=== PATIENT | female | born 1960 | race Caucasian/White ===

== ENCOUNTER 2020-12-06 11:15 | Inpatient (IN) | payer OTHER ==
[~2020-12-06] VITALS: Ht 170.2 cm; Wt 108.9 kg
[~2020-12-06 11:15] MED LIST: CIPRO750 MG PO; CLONAZEPAM1 MG PO; COLACE100 MG PO; METHYLPRED4 MG/DOSE- PO; NEURONTIN800 MG PO; PERCOCET 5/3251 TAB PO
[2020-12-06] MEDS ORDERED: ZESTRIL40 M1 PO (12:55)
[2020-12-06] MEDS ORDERED: CLONAZEPAM2 M1 PO (12:55)
[2020-12-06] MEDS ORDERED: PRISTIQ ER100 MG PO (12:55)
[2020-12-06] MEDS ORDERED: PAMELOR50 M1 PO (12:56)
[2020-12-06] MEDS ORDERED: PROZAC10 MG PO (12:56)
[2020-12-13] MEDS ORDERED: PERCOCET 5-3251 EACH PO (17:59)
[2020-12-13] MEDS ORDERED: COLACE100 MG PO (17:59)
[2020-12-13] MEDS ORDERED: NEURONTIN800 MG PO (17:59)
[2020-12-13] MEDS ORDERED: AMOX-CLAV 875-1 EACH PO (17:59)
[2020-12-13] MEDS ORDERED: MEDROLPACK PO (17:59)
== END 2020-12-15 11:50 | disposition home or self-care (01) | DRG 455 ==
LOC: O/R 12-13 06:39 → PED 12-13 06:39 → SURH 12-13 11:15 → PED 12-13 22:56
PROVIDERS: ADMIT Orthopaedic Surgery Orthopaedic Surgery of the Spine; ATTEND Orthopaedic Surgery Orthopaedic Surgery of the Spine
PROC: 0SG00J1 Fusion of Lumbar Vertebral Joint with Synthetic Substitute, Posterior Approach, Posterior Column, Open Approach (ICD-10-PCS; 2020-12-13)
PROC: 07DR0ZZ Extraction of Iliac Bone Marrow, Open Approach (ICD-10-PCS; 2020-12-13)
PROC: 07DR0ZZ Extraction of Iliac Bone Marrow, Open Approach (ICD-10-PCS; 2020-12-13)
PROC: 0SG00A0 Fusion of Lumbar Vertebral Joint with Interbody Fusion Device, Anterior Approach, Anterior Column, Open Approach (ICD-10-PCS; principal; 2020-12-13 19:45)
DX: M41.56 Other secondary scoliosis, lumbar region (principal); M48.062 Spinal stenosis, lumbar region with neurogenic claudication

== ENCOUNTER 2023-04-01 10:00 | Inpatient (IN) | payer OTHER ==
[~2023-04-01] VITALS: Ht 170.2 cm; Wt 111.1 kg
[~2023-04-01 10:00] MED LIST changes: +AMOX-CLAV 875-1 EACH PO; +CLONAZEPAM2 M1 PO; +MEDROLPACK PO; +PAMELOR50 M1 PO; +PERCOCET 5-3251 EACH PO; +PRISTIQ ER100 MG PO; +PROZAC10 MG PO; +ZESTRIL40 M1 PO
[2023-04-06 06:41] LABS: INR 1.27; PARTIAL THROMBOPLASTIN TIME 26.7 SECONDS (22.0-34.0); PROTHROMBIN TIME 13.1 SECONDS (9.0-11.5)
[2023-04-06] MEDS ORDERED: MEDROLPACK PO (12:44)
[2023-04-06] MEDS ORDERED: PERCOCET 5-3251 EACH PO (12:44)
[2023-04-06] MEDS ORDERED: AMOX-CLAV 875-1 EAC1 PO (12:45)
[2023-04-06] MEDS ORDERED: COLACE100 MG PO (12:45)
[2023-04-06] MEDS ORDERED: NEURONTIN800 MG PO (12:45)
[2023-04-06] MEDS ORDERED: GABAPENTIN100 M2 PO (12:46)
[2023-04-07 08:01] LABS: HEMATOCRIT 38.7 % (36.0-45.00); HEMOGLOBIN 13.4 g/dL (12.0-15.00); MEAN CELL VOLUME 87.6 fL (80.00-100.00); MEAN CORPUSCULAR HEMOGLOBIN 30.3 pg (27.00-32.0); MEAN CORPUSCULAR HGB CONC 34.6 g/dl (32.0-36.0); PLATELET COUNT 253 K/uL (150-450); RED BLOOD COUNT 4.42 M/uL (4.00-6.00); RED CELL DISTRIBUTION WIDTH 13.1 % (11.5-14.5)
[2023-04-07 08:22] LABS: CALCIUM 9.2 mg/dL (8.5-10.1); CREATININE SERUM 0.63 mg/dL (0.55-1.02); GFR 95.14; POTASSIUM 4.25 mEq/L (3.5-5.1)
== END 2023-04-08 09:48 | disposition home or self-care (01) | DRG 455 ==
LOC: SURH 04-06 07:00 → O/R 04-06 12:07 → SURG 04-06 12:07 → O/R 04-06 17:31 → SURG 04-06 17:33
PROVIDERS: ADMIT Orthopaedic Surgery Orthopaedic Surgery of the Spine; ATTEND Orthopaedic Surgery Orthopaedic Surgery of the Spine
PROC: 0SG0071 Fusion of Lumbar Vertebral Joint with Autologous Tissue Substitute, Posterior Approach, Posterior Column, Open Approach (ICD-10-PCS; 2023-04-06)
PROC: 0SB20ZZ Excision of Lumbar Vertebral Disc, Open Approach (ICD-10-PCS; 2023-04-06)
PROC: 0QB30ZZ Excision of Left Pelvic Bone, Open Approach (ICD-10-PCS; 2023-04-06)
PROC: 07DR0ZZ Extraction of Iliac Bone Marrow, Open Approach (ICD-10-PCS; 2023-04-06)
PROC: 4A1104G Monitoring of Peripheral Nervous Electrical Activity, Intraoperative, Open Approach (ICD-10-PCS; 2023-04-06)
PROC: 0SG00A0 Fusion of Lumbar Vertebral Joint with Interbody Fusion Device, Anterior Approach, Anterior Column, Open Approach (ICD-10-PCS; principal; 2023-04-06 07:00)
DX: M48.062 Spinal stenosis, lumbar region with neurogenic claudication (principal); M51.26 Other intervertebral disc displacement, lumbar region; M51.36 Other intervertebral disc degeneration, lumbar region; M54.16 Radiculopathy, lumbar region; I10 Essential (primary) hypertension; E03.9 Hypothyroidism, unspecified; Z20.822 Contact with and (suspected) exposure to COVID-19